=== PATIENT | male | born 1955 | race Caucasian/White ===

== ENCOUNTER 2017-03-16 12:37 | Outpatient (CLI) | payer BC | END 2017-03-16 12:38 | disposition home or self-care (01) | LOC: BICRAD 12:37 | PROVIDERS: ATTEND Internal Medicine Rheumatology | DX: M25.511 Pain in right shoulder (principal); M17.0 Bilateral primary osteoarthritis of knee; M25.512 Pain in left shoulder; M25.531 Pain in right wrist; M25.532 Pain in left wrist; M25.561 Pain in right knee; M25.562 Pain in left knee; M79.641 Pain in right hand; M79.642 Pain in left hand; M25.571 Pain in right ankle and joints of right foot; M25.572 Pain in left ankle and joints of left foot ==

== ENCOUNTER 2017-09-28 07:01 | Outpatient (CLI) | payer OTHER ==
--- NOTE | 2017-09-28 09:49 | ULT ---
ULTRSOUND ABDOMEN: HISTORY: Mid epigastric pain. FINDINGS: The liver demonstrates increased echogenicity with focal areas consistent with fatty infiltration wit h focal areas of sparing. No definite focal mass or intrahepatic ductal dilatation is seen. The spl een measures 11.8 cm and is normal. No gallstones are seen. There is mild gallbladder wall thicknes s measuring about 4 mm with trace pericholecystic fluid. The common duct measures 4 mm in diameter. The pancreas is no well visualized. The visualized portions of the aorta and IVC are unremarkable. There is a 2.3 cm cyst in the superior pole of the left kidney and a 3.2 cm parapelvic cyst in the l eft kidney. There is a 9 mm echogenic focus in the inferior pole of the right kidney. This is nonsh adowing and may represent an angiomyolipoma or a nonshadowing calculus. No ascites is seen. IMPRESSION: 1. Fatty liver. 2. Mild gallbladder wall thickening with trace pericholecystic fluid. If there is concern for acute cholecystitis, further evaluation with HIDA scan should be performed. 3. Left renal cyst. 4. A 9 mm echogenic focus in the right kidney. Further evaluation with CT scan (with and without IV contrast) using the urography protocol is recommended. POS: [id number]
== END 2017-09-28 07:02 | disposition home or self-care (01) ==
LOC: SCSULT 07:01
PROVIDERS: ATTEND Internal Medicine Gastroenterology
DX: R10.13 Epigastric pain (principal); K76.0 Fatty (change of) liver, not elsewhere classified; N28.1 Cyst of kidney, acquired; K82.9 Disease of gallbladder, unspecified; R93.421 Abnormal radiologic findings on diagnostic imaging of right kidney
CPT/HCPCS: 76700